=== PATIENT | female | born 1990 | race Caucasian/White ===

== ENCOUNTER 2022-03-24 15:42 | Emergency (ER) | payer OTHER ==
[~2022-03-24] VITALS: Ht 165.1 cm; Wt 59.0 kg
[2022-03-24] MEDS ORDERED: KETOROLAC 30MG/ML VIAL IV STA (16:12)
[2022-03-24] MEDS ORDERED: ONDANSETRON HCL 4MG/2ML INJ IV STA (16:12)
[2022-03-24] MEDS ORDERED: SODIUM CHLORIDE 0.9% 1,000 ML IV ONE (16:15)
[2022-03-24 17:45] LABS: BASOPHILS % 0.5 % (0.0-2.0); EOSINOPHILS % 0.5 % (0.0-5.0); HEMATOCRIT. 31.4 % (36.0-48.0); HEMOGLOBIN. 10.8 g/dL (12.0-16.0); LYMPHOCYTES % 26.6 % (20.0-50.0); MEAN CORPUSCULAR HEMOGLOBIN 30.9 pg (28.0-32.0); MEAN CORPUSCULAR VOLUME 90.4 fL (81.0-99.0); MEAN PLATELET VOLUME 8.4 fl (7.4-10.4); MONOCYTES % 8.3 % (2.0-8.0); NEUTROPHILS % 64.1 % (40.0-76.0); PLATELET 261 x1000/uL (130-400); RED BLOOD CELL COUNT 3.48 mill/uL (4.2-5.4); RED CELL DISTRIBUTION WIDTH 14.3 % (11.6-14.6)
[2022-03-24 17:51] LABS: CHLORIDE 105 mEq/L (98-107)
[2022-03-24 18:00] LABS: HCG SCREEN NEGATIVE
[2022-03-24 18:06] LABS: INR 1.2
[2022-03-24 20:00] VITALS: BP 109/76
[2022-03-24] MEDS ORDERED: POLY17PO3 MT (21:15)
== END 2022-03-24 21:54 | disposition home or self-care (01) ==
LOC: ER 15:42
DX: G40.909 Epilepsy, unspecified, not intractable, without status epilepticus (principal); K59.00 Constipation, unspecified
CPT/HCPCS: 36415; 70450; 71045; 74176; 80053; 83690; 84703; 85025; 85610; 86850; 86900; 86901; 96361; 96374; 96375; 99285; J1885; J2405; J7030